=== PATIENT | female | born 1945 | race Caucasian/White ===

== ENCOUNTER 2017-11-25 09:10 | Emergency (ER) | payer MEDICARE ==
[~2017-11-25] VITALS: Ht 157.5 cm; Wt 88.5 kg
[2017-11-25 09:17] VITALS: BP 160/56
[2017-11-25] MEDS ORDERED: TETanus/Pertussis (Acell)/Diphther VAC/PF (Tdap-Adult) 0.5ml syringe IM ONE (10:45)
[2017-11-25] MEDS ORDERED: HYDR-3965 PO (11:06)
== END 2017-11-25 12:04 | disposition home or self-care (01) ==
LOC: ER 09:10
DX: S42.402A Unspecified fracture of lower end of left humerus, initial encounter for closed fracture (principal); S00.31XA Abrasion of nose, initial encounter; M25.562 Pain in left knee; M25.561 Pain in right knee; I10 Essential (primary) hypertension; E11.9 Type 2 diabetes mellitus without complications; Z85.3 Personal history of malignant neoplasm of breast; W01.0XXA Fall on same level from slipping, tripping and stumbling without subsequent striking against object, initial encounter; Y93.01 Activity, walking, marching and hiking; Y92.89 Other specified places as the place of occurrence of the external cause; Y99.8 Other external cause status
CPT/HCPCS: 29105; 73090; 73110; 90471; 90715; 99284; A4565; A6449

== ENCOUNTER 2017-11-27 14:18 | Emergency (ER) | payer MEDICARE ==
[~2017-11-27] VITALS: Ht 157.5 cm; Wt 83.0 kg
[~2017-11-27 14:18] MED LIST: HYDR-3965 PO
[2017-11-27 14:24] VITALS: BP 138/82
== END 2017-11-27 16:15 | disposition home or self-care (01) ==
LOC: ER 14:18
DX: M25.522 Pain in left elbow (principal); R60.9 Edema, unspecified; I10 Essential (primary) hypertension; E11.9 Type 2 diabetes mellitus without complications; Z85.3 Personal history of malignant neoplasm of breast
CPT/HCPCS: 99282

== ENCOUNTER 2017-12-04 09:17 | Outpatient (CLI) | payer MEDICARE ==
[2017-12-04 09:31] VITALS: BP 132/63
== END 2017-12-04 09:57 | disposition home or self-care (01) ==
LOC: ORTHO 09:17
PROVIDERS: ATTEND Nurse Practitioner Family
DX: S52.125A Nondisplaced fracture of head of left radius, initial encounter for closed fracture (principal); E11.9 Type 2 diabetes mellitus without complications; Z85.3 Personal history of malignant neoplasm of breast; W01.0XXA Fall on same level from slipping, tripping and stumbling without subsequent striking against object, initial encounter; Y93.89 Activity, other specified; Y92.89 Other specified places as the place of occurrence of the external cause; Y99.8 Other external cause status
CPT/HCPCS: 99213; A6449

== ENCOUNTER 2017-12-18 09:08 | Outpatient (CLI) | payer MEDICARE ==
[2017-12-18 09:08] VITALS: BP 136/66
== END 2017-12-18 10:00 | disposition home or self-care (01) ==
LOC: ORTHO 09:08
PROVIDERS: ATTEND Nurse Practitioner Family
DX: S52.125D Nondisplaced fracture of head of left radius, subsequent encounter for closed fracture with routine healing (principal); Z79.84 Long term (current) use of oral hypoglycemic drugs; E11.9 Type 2 diabetes mellitus without complications; Z85.3 Personal history of malignant neoplasm of breast; W01.0XXD Fall on same level from slipping, tripping and stumbling without subsequent striking against object, subsequent encounter
CPT/HCPCS: 73080

== ENCOUNTER 2017-12-18 20:11 | Emergency (ER) | payer MEDICARE ==
[~2017-12-18] VITALS: Ht 157.5 cm; Wt 79.6 kg
[2017-12-18 21:44] LABS: BASOPHILS % (AUTO) 0.6 % (0-1); EOSINOPHILS # (AUTO) 0.5 X10'3 (0-0.9); EOSINOPHILS % (AUTO) 7.6 % (0-6); HEMATOCRIT 36.9 % (35.0-45.0); HEMOGLOBIN 12.4 g/dl (12.0-16.0); LYMPHOCYTES # (AUTO) 1.7 X10'3 (1.1-4.8); LYMPHOCYTES % (AUTO) 23.8 % (21-51); MEAN CORPUSCULAR HEMOGLOBIN 29.9 PG (27.0-31.0); MEAN CORPUSCULAR HGB CONC 33.6 % (33.0-36.5); MEAN PLATELET VOLUME 8.7 FL (7.4-10.4); MONOCYTES # (AUTO) 0.6 X10'3 (0-0.9); MONOCYTES % (AUTO) 8.5 % (2-12); NEUTROPHILS # (AUTO) 4.3 X10'3 (1.8-7.7); NEUTROPHILS % (AUTO) 59.5 % (42-75); PLATELET COUNT 313 X10'3 (140-440); RED BLOOD COUNT 4.14 X10'6 (4.20-5.60); RED CELL DISTRIBUTION WIDTH 13.5 % (11.5-14.5); WHITE BLOOD COUNT 7.2 X10'3 (4.5-11.0)
[2017-12-18 21:52] LABS: PARTIAL THROMBOPLASTIN TIME 38 SECONDS (22-32); PROTHROMBIN TIME 9.9 SECONDS (9.0-12.0)
[2017-12-18 22:08] LABS: ALANINE AMINOTRANSFERASE 18 U/L (12-78); ALKALINE PHOSPHATASE 98 IU/L (46-116); ANION GAP 10 (8-16); ASPARTATE AMINO TRANSFERASE 17 U/L (10-37); BILIRUBIN,TOTAL 0.3 MG/DL (0.1-1.0); BLOOD UREA NITROGEN 16 MG/DL (7-18); CALCIUM 9.8 MG/DL (8.5-10.1); CHLORIDE 99 MMOL/L (99-107); CREATININE 1.33 MG/DL (0.40-0.90); GLUCOSE 201 MG/DL (70-104); POTASSIUM 3.6 MMOL/L (3.5-5.1); SODIUM 137 MMOL/L (135-145); TOTAL CARBON DIOXIDE 28.5 MMOL/L (24-32); TOTAL PROTEIN 8.1 G/DL (6.4-8.2); eGFR 39 ML/MIN
[2017-12-18 23:06] VITALS: BP 153/76
== END 2017-12-18 23:08 | disposition home or self-care (01) ==
LOC: ER 20:12
DX: R00.2 Palpitations (principal); I10 Essential (primary) hypertension; E11.9 Type 2 diabetes mellitus without complications; Z85.3 Personal history of malignant neoplasm of breast; Z79.899 Other long term (current) drug therapy
CPT/HCPCS: 36415; 71045; 80053; 84443; 84484; 85025; 85610; 85730; 93005; 99285

== ENCOUNTER 2022-03-15 01:28 | Emergency (ER) | payer MEDICARE ==
[~2022-03-15] VITALS: Ht 157.5 cm; Wt 83.2 kg
[2022-03-15 01:45] VITALS: BP 171/67
[2022-03-15] MEDS ORDERED: acetaminophen 325mg tablet PO ONE (01:55)
== END 2022-03-15 06:21 | disposition left against medical advice (07) ==
LOC: ER 01:29
DX: J11.1 Influenza due to unidentified influenza virus with other respiratory manifestations (principal); Z53.21 Procedure and treatment not carried out due to patient leaving prior to being seen by health care provider